=== PATIENT | female | born 1975 | race Caucasian/White ===

== ENCOUNTER 2019-12-20 20:13 | Emergency (ER) | payer BC ==
[~2019-12-20] VITALS: Ht 167.6 cm; Wt 89.4 kg
--- NOTE | 2019-12-20 21:38 | NUR ---
Pt bibself c/o High blood pressure since yesterday afternoon, +nausea, +abdominal pain, +headache, came from [place] x 1week. Pt aaox4, rr even and unlabored on ra w/ and noted. Pt connected to the monitor and pox.
[2019-12-20] MEDS ORDERED: MAG HYDROX/AL HYDROX/SIMETH 30 ML UDC PO ONE (22:30)
[2019-12-20] MEDS ORDERED: LIDOCAINE VISCOUS 2% UD 15 ML UDC MM ONE (22:30)
[2019-12-20] MEDS ORDERED: MAG HYDROX/AL HYDROX/SIMETH 30 ML UDC ONE (22:31)
[2019-12-20] MEDS ORDERED: LIDOCAINE VISCOUS 2% UD 15 ML UDC ONE (22:31)
[2019-12-20 22:47] LABS: BASOPHILS # (AUTO) 0.1 /CMM (0.0-0.2); BASOPHILS % (AUTO) 0.8 % (0.0-2.0); EOSINOPHILS % (AUTO) 4.8 % (0.0-6.0); HEMATOCRIT 38 % (33-45); HEMOGLOBIN 13.1 g/dL (11.5-14.8); LYMPHOCYTES # (AUTO) 2.6 /CMM (0.8-4.8); LYMPHOCYTES % (AUTO) 37.3 % (20.0-44.0); MEAN CORPUSCULAR HGB CONC 35 g/dl (31.0-36.0); MEAN CORPUSCULAR VOLUME 85 fL (82-100); MONOCYTES # (AUTO) 0.4 /CMM (0.1-1.30); NEUTROPHILS # (AUTO) 3.6 /CMM (1.8-8.9); NEUTROPHILS % (AUTO) 51.1 % (43.0-81.0); PLATELET COUNT (AUTO) 274 /CMM (150-450)
[2019-12-20 22:58] LABS: CALCIUM, SERUM 9.1 mg/dL (8.5-10.1); CARBON DIOXIDE 27 mmol/L (21-32); CHLORIDE 104 mmol/L (98-107); CREATININE 0.7 mg/dL (0.6-1.3); GLUCOSE 98 mg/dL (74-106); POTASSIUM 3.8 mmol/L (3.5-5.1); SODIUM SERUM 140 mmol/L (136-145); UREA NITROGEN, BLOOD 12 mg/dL (7-18)
[2019-12-20 23:03] LABS: ALANINE AMINOTRANSFERASE 35 U/L (12-78); ALKALINE PHOSPHATASE 85 U/L (46-116); ASPARTATE AMINOTRANSFERASE 27 U/L (15-37); BILIRUBIN,TOTAL 0.2 mg/dL (0.2-1.0); LIPASE 109 U/L (73-393); TOTAL PROTEIN, SERUM 7.1 g/dL (6.4-8.2)
[2019-12-21 00:52] VITALS: BP 154/97
--- NOTE | 2019-12-21 00:52 | NUR ---
Patient discharged to home in stable condition. Written and verbal after care instructions given. Patient verbalizes understanding of instruction.IV removed. Catheter intact and site benign. Pressure and 4x4 applied to site. No bleeding noted.
== END 2019-12-21 00:53 | disposition home or self-care (01) ==
LOC: ER 20:17
DX: K21.9 Gastro-esophageal reflux disease without esophagitis (principal); I10 Essential (primary) hypertension; Z88.8 Allergy status to other drugs, medicaments and biological substances
CPT/HCPCS: 36415; 80048-TC; 80076-TC; 83690-TC; 84443-TC; 84484-TC; 85025-TC

== ENCOUNTER 2019-12-21 06:21 | Emergency (ER) | payer BC ==
[~2019-12-21] VITALS: Ht 167.6 cm; Wt 72.6 kg
--- NOTE | 2019-12-21 06:41 | NUR ---
PATIENT CAME TO ER BED 4 C/O HIGH BLOOD PRESSURE, CHEST PAIN, AND HEADACHE. PATIENT STATES THAT SHE FELT HER HEADACHE SINCE LAST NIGHT. PATIENT STATES THAT SHE TAKES CLONAZEPAM TO HELP HER SLEEP. AAOX4. NO SOB. BREATHING EVENLY AND UNLABORED ON ROOM AIR. CONNECTED TO [employer].
[2019-12-21] MEDS ORDERED: LORAZEPAM 1 MG TABLET ONE (06:44)
[2019-12-21] MEDS ORDERED: LORAZEPAM 1 MG TABLET PO ONE (07:00)
[2019-12-21 08:27] VITALS: BP 160/91
--- NOTE | 2019-12-21 08:28 | NUR ---
Patient discharged to home in stable condition. Written and verbal after care instructions given. Patient verbalizes understanding of instruction.
== END 2019-12-21 08:28 | disposition home or self-care (01) ==
LOC: ER 06:22
DX: I10 Essential (primary) hypertension (principal); R51 Headache; Z88.8 Allergy status to other drugs, medicaments and biological substances
CPT/HCPCS: 36415; 70450-TC; 84484-TC

== ENCOUNTER 2022-07-24 15:44 | Emergency (ER) | payer BC ==
[~2022-07-24] VITALS: Ht 170.2 cm; Wt 72.1 kg
[2022-07-24 16:12] VITALS: BP 112/72
--- NOTE | 2022-07-24 16:55 | NUR ---
patient signed waiver form.
[2022-07-24] MEDS ORDERED: KETOROLAC TROMETHAMINE INJ 60 MG/2 ML VIAL IM ONE (17:00)
[2022-07-24] MEDS ORDERED: KETOROLAC TROMETHAMINE INJ 30 MG/ML VIAL ONE (17:00)
--- NOTE | 2022-07-24 17:08 | NUR ---
medicated as ordered
[2022-07-24] MEDS ORDERED: NAPR-1164 PO (18:06)
--- NOTE | 2022-07-24 18:13 | NUR ---
Patient discharged to home in stable condition. Written and verbal after care instructions given. Patient verbalizes understanding of instruction.
== END 2022-07-24 18:15 | disposition home or self-care (01) ==
LOC: ER 15:48
DX: S40.012A Contusion of left shoulder, initial encounter (principal); G56.22 Lesion of ulnar nerve, left upper limb; Z88.8 Allergy status to other drugs, medicaments and biological substances; V49.49XA Driver injured in collision with other motor vehicles in traffic accident, initial encounter; Y93.89 Activity, other specified; Y92.413 State road as the place of occurrence of the external cause; Y99.8 Other external cause status
CPT/HCPCS: 99284; 96372; 73000; 73030; J1885